=== PATIENT | male | born 2000 ===

== ENCOUNTER 2025-04-13 17:05 | Outpatient (REF) | payer MEDICAID, SELFPAY ==
[2025-04-13 20:44] LABS: Abs Immature Grans 0.02 10^3/uL (0.0-0.06); HCT 42.8 % (40.0-50.0); HGB 14.9 g/dL (13.5-17.5); Immature Grans % 0.3 %; MCH 30.8 pg (27.0-33.0); MCHC 34.8 % (32.0-36.0); MCV 88 fL (80-95); MPV 9.7 fL (8.0-11.0); Platelet Count 307 10^3/uL (130-400); RBC 4.84 10^6/uL (4.36-5.78); RDW 12.2 % (11.8-14.1); RDW-SD 39.2 fL; WBC 6.34 10^3/uL (4.4-10.8)
[2025-04-13 21:03] LABS: ALT 19 U/L (16-63); AST 15 U/L (15-37); Albumin 4.1 g/dL (3.4-5.0); Alkaline Phosphatase 70 U/L (46-116); Anion Gap 7.6 mmol/L (3-11); BUN 16 mg/dL (7-18); Bilirubin, Total 0.8 mg/dL (0.2-1.0); CO2 28.4 mmol/L (21.0-32.0); Calcium 9.1 mg/dL (8.5-10.1); Chloride 106 mmol/L (98-107); Estimated GFR 122.31 (mL/min/1.73m2); Glucose 116 mg/dL (74-106); Potassium 3.8 mmol/L (3.5-5.1); Sodium 142 mmol/L (136-145); TSH 0.58 uIU/mL (0.36-3.74); Total Protein 7.4 g/dL (6.4-8.2)
[2025-04-13 21:22] LABS: Hemoglobin A1C 5.0 % (<5.7)
== END 2025-04-13 17:06 | disposition home or self-care (01) ==
LOC: NCHCN 17:05
PROVIDERS: Visit Provider Physician Assistant
DX: R63.4 Abnormal weight loss (principal)
CPT/HCPCS: 80053; 83036; 84439; 84443; 85025